=== PATIENT | female | born 1995 | race Caucasian/White ===

== ENCOUNTER 2016-09-21 00:35 | Emergency (ER) | payer BC ==
[~2016-09-21] VITALS: Ht 165.1 cm; Wt 87.5 kg
[2016-09-21] MEDS ORDERED: YASMIN 28 TABL1 EACH PO (04:04)
[2016-09-21] MEDS ORDERED: ASPIRIN81 MG PO (04:04)
== END 2016-09-21 01:15 | disposition short-term general hospital (02) ==
LOC: ER 00:35
DX: M79.81 Nontraumatic hematoma of soft tissue (principal); Z79.82 Long term (current) use of aspirin; Z88.0 Allergy status to penicillin; Z88.5 Allergy status to narcotic agent